=== PATIENT | male | born 1970 | race Caucasian/White ===

== ENCOUNTER 2021-12-07 12:03 | Outpatient (CLI) | payer OTHER, SELFPAY ==
--- NOTE | ~2021-12-07 | PE_ITS ---
EXAMINATION: PET skull to mid thigh DATE: 12/07/2021 13:47 INDICATION: Lung mass TECHNIQUE: Blood glucose level was 109 mg/dL. 9.616 mCi of 18-fluorodeoxyglucose (18-FDG) was adminis tered i.v. Low dose computed tomography (CT) images were acquired from the base of the brain to the p roximal thighs for attenuation correction and anatomic localization. Positron emission tomography (PE T) images were acquired in the same distribution beginning 57 minutes after injection. The dose-lengt h product (DLP) was 516.24 mGy-cm. COMPARISON: None FINDINGS: Head/neck: No abnormal FDG uptake is identified. Uptake in the oral cavity and vocal cords without CT correlate is likely physiologic. There are no pathologically enlarged cervical lymph nodes. Chest: There are multiple nodules and masses of the lungs, many of which demonstrate cavitation. For instance, there is a 3.5 x 1.6 cm thick-walled cavitary mass in the medial aspect of the right lower lobe. A 3.4 x 1.9 cm thick-walled cavitary mass is present in the right middle lobe. A 1 cm nodule is present in the right upper lobe. Left upper lobe nodules measure up to 2.3 cm. None demonstrate sign ificant FDG uptake. There is no pleural effusion or pneumothorax. No pathologically enlarged thoracic lymph nodes are identified. The heart size is normal. Abdomen/pelvis/proximal thighs: No abnormal FDG uptake is identified. Physiologic FDG activity is pre sent in the bowel and urinary tract. There is an old 11 cm rim calcified hematoma of the spleen. The liver, pancreas, gallbladder, and adrenal glands are normal. The kidneys are unremarkable. No patholo gically enlarged abdominal or pelvic lymph nodes are identified. There is no free intraperitoneal gas or evidence of bowel obstruction. A 1.4 cm fat attenuation lesion of the ileum without abnormal FDG uptake is consistent with a lipoma. There is a small fat-containing umbilical hernia. Musculoskeletal: Symmetric FDG uptake is noted in the glenohumeral joints. IMPRESSION: 1. Multiple nodules and masses of the lungs, many of which demonstrate cavitation. Differential inclu dionicio infection, malignancy, and rheumatoid arthritis given the patient's clinical history. CT-guided b iopsy is recommended for confirmation. 2. Symmetric FDG uptake in the glenohumeral joints, possibly reflecting rheumatoid arthritis. Reviewed, dictated and finalized at location A. LE PASTER IMPRESSION: 1. Multiple nodules and masses of the lungs, many of which demonstrate cavitati on. Differential includes infection, malignancy, and rheumatoid arthritis given the patient's clinical history. CT-guided biopsy is recommended for confirmati on. 2. Symmetric FDG uptake in the glenohumeral joints, possibly reflecting rheumat oid arthritis.
[2021-12-07 12:25] LABS: Glucose Point of Care 109 mg/dl (65-105)
== END 2021-12-07 12:04 | disposition home or self-care (01) ==
LOC: ANHIMG 12:05
PROVIDERS: PCP Internal Medicine; Visit Provider Internal Medicine Hematology & Oncology
DX: R91.8 Other nonspecific abnormal finding of lung field (principal)
CPT/HCPCS: 78815; A9552

== ENCOUNTER 2021-12-31 15:14 | Outpatient (CLI) | payer OTHER, SELFPAY ==
[2021-12-27 11:01] VITALS: BMI 26.2
--- NOTE | 2021-12-27 11:12 | PC.NURSE ---
Report to the Outpatient Waiting Room, entrance under the green pavilion located off [facility], at time 0900 on date 12/31/21. OR Time: 1100. - You and your visitor will be asked a series of questions to screen for COVID 19 for your protection. - A mask is required within the hospital. One visitor will be allowed to accompany the patient into the hospital. Patients visitor will be instructed to remain with patient at all times or leave the building. We will allow the visitor to come back to the postoperative area when patient is ready. Preoperative COVID Testing Requirements: No COVID Test needed if: (proof is required; if not received patient will have Rapid Test prior to entry) - Patient has received COVID Vaccine at least 14 days prior to procedure date or - Patient has positive COVID test result within last 90 days of surgery date. COVID Test needed if above criteria is not met - No food/DRINK FOR 6 HOURS PRIOR TO PROCEDURE Take the following medications with a SIP of water the morning of PROCEDURE: PRESCRIBED Medications to discontinue per physician: N/A Date to take last dose: N/A Please no make-up, nail slovak, hairspray, perfume, deodorant, or body powder the day of surgery. No jewelry (including any body piercings) or valuables the day of surgery, leave them at home. Please take a shower or bath the night before, or the morning of, surgery with an antibacterial soap. Wear comfortable, loose fitting clothing. - Jewelry must be removed prior to entering the operating room. Rings and piercings that are not removed may be cut off. - The hospital will not accept responsibility for valuables. - Please leave all valuables, including medications, at home the day of surgery. If you are going home after surgery, a licensed driver trainee must drive you home. - NO public transportation without another adult. - We recommend that an adult stay with you for 24 hours following discharge. - We also recommend that you do not drive, make important decision, drink alcoholic beverages, or take any drugs that were not prescribed by your health care provider for at least 24 hours after your discharge time. Follow any additional instructions given to you from your surgeon. Telephone instructions given to SHEN PIERCE and asked if any additional questions and then verbalized understanding. Patient advised to call surgeon office or pre surgery nurse liaison [phone] if any additional questions.
[2021-12-31] VITALS (9 sets, daily range): BP systolic 115–134; BP diastolic 69–93; PULSE 91–109; RESP 16–20; TEMP 36.4; O2SAT 98–99
--- NOTE | ~2021-12-31 | XR_ITS ---
EXAMINATION: XR chest 1V DATE: 12/31/2021 11:28 INDICATION: Right lung nodule status post percutaneous biopsy. TECHNIQUE: A single frontal view of the chest was obtained. COMPARISON: PET CT 12/07/2021 FINDINGS: There are multiple cavitary masses and nodules in the lungs. No pleural effusion or pneumot horax. The heart size is normal. There is a rim calcified mass in the spleen, likely an old hematoma or old infection. IMPRESSION: 1. Cavitary masses and nodules in the lungs, which may be benign or malignant. Reviewed, dictated and finalized at location A. PLACE REHABILITATION OFFICER
--- NOTE | ~2021-12-31 | CT_ITS ---
. EXAMINATION: CT biopsy lung w/imaging DATE: 12/31/2021 11:30 INDICATION: Right lung lower lobe cavitary mass TECHNIQUE: The procedure including the risks, benefits, and alternatives and possibility of chest tub e placement were discussed with the patient. Risks discussed included infection, approximately 1/20 r isk of symptomatic hemorrhage beyond mild hemoptysis, approximately 1/3 risk of pneumothorax, approxi mately 1/10 risk of pneumothorax severe enough to warrant chest tube placement, and rarely . The patient understood the risks and agreed to proceed. The patient was placed prone. The skin overlyin g the right lower lobe was prepped and draped in sterile fashion. Anesthetic was administered with 1 % lidocaine subcutaneously. A 19 gauge outer needle was advanced under CT guidance to the lesion of interest. A 20 gauge core biopsy needle was then used to obtain 3 core biopsy specimens. The needle w as removed and the entry site was cleaned and dressed. The mA was adjusted according to patient size. Iterative reconstruction technique was employed. The dose-length product was 303.23 mGy-cm. There w ere no immediate complications. FINDINGS: CT images demonstrate the outer needle tip adjacent to a 3.9 x 2.1 m cavitary mass in right lung lower lobe. IMPRESSION: 1. CT-guided core needle biopsy of a cavitary mass in right lung lower lobe. Reviewed, dictated and finalized at location A. PAYROLL COORDINATOR
--- NOTE | ~2021-12-31 | XR_ITS ---
EXAMINATION: XR chest 1V portable DATE: 12/31/2021 14:22 INDICATION: Right lung mass status post percutaneous biopsy. TECHNIQUE: A single frontal view of the chest was obtained. COMPARISON: Chest single view at 12:21 PM FINDINGS: There are cavitary nodules and masses in the lungs bilaterally. Right-sided pleural thicken ing is noted. No pleural effusion or pneumothorax. The heart size is normal. A rim calcified mass in the spleen may be an old hematoma or old infection. IMPRESSION: 1. Cavitary nodules and masses in the lungs, which may be benign or malignant. Reviewed, dictated and finalized at location A. R VEHICLE ESCORT DRIVER
--- NOTE | ~2021-12-31 | XR_ITS ---
EXAMINATION: XR chest 1V portable DATE: 12/31/2021 12:25 INDICATION: Right lung nodule status post percutaneous biopsy. TECHNIQUE: A single frontal view of the chest was obtained. COMPARISON: Chest single view at 11:26 AM FINDINGS: There are cavitary nodules and masses in the lungs bilaterally. Right-sided pleural thicken ing is noted. No pleural effusion or pneumothorax. The heart size is normal.. A rim calcified mass in the spleen may be an old hematoma or old infection. IMPRESSION: 1. Cavitary nodules and masses in the lungs, which may be benign or malignant. Reviewed, dictated and finalized at location A. OR ORACLE DBA
[2021-12-31 09:27] LABS: Mean Platelet Volume 9.3 fl (7.4-10.4); Platelet Count Result 253 k/mm3 (150-375)
[2021-12-31 09:35] LABS: Prothrombin Time 12.6 Seconds (11.1-14.7)
--- NOTE | 2021-12-31 14:51 | SUR.PHASEII ---
1440 dr wendy mcmahon and notified me that last chest xray looks good, patient is doing well, vital signs stable, room air, no pain. patient is okay for discharge
== END 2021-12-31 15:16 | disposition home or self-care (01) ==
LOC: ANHSURGERY 15:14
PROVIDERS: PCP Internal Medicine; Referring Provider Internal Medicine Hematology & Oncology; Visit Provider Radiology Diagnostic Radiology
PROC: BB24ZZZ Computerized Tomography (CT Scan) of Bilateral Lungs (ICD-10-PCS; CPT 32408; principal; 2021-12-31 11:00)
DX: R91.8 Other nonspecific abnormal finding of lung field (principal)
CPT/HCPCS: 32408; 36415; 71045; 85049; 85610; 88305; 88312; 88342